=== PATIENT | female | born 1935 | race Caucasian/White ===

== ENCOUNTER 2017-08-14 12:38 | Observation (INO) | payer MEDICARE, OTHER ==
[~2017-08-14] VITALS: Ht 162.6 cm; Wt 77.1 kg
[2017-08-14 14:01] LABS: HEMATOCRIT. 39.2 % (36.0-48.0); MEAN CORPUSCULAR HEMOGLOBIN 30.6 pg (28.0-32.0); MEAN CORPUSCULAR VOLUME 92.4 fL (81.0-99.0); MEAN PLATELET VOLUME 9.2 fl (7.4-10.4); PLATELET 224 x1000/uL (130-400); RED BLOOD CELL COUNT 4.24 mill/uL (4.2-5.4)
[2017-08-14 14:02] LABS: CHLORIDE 104 mEq/L (98-107)
[2017-08-14 14:03] LABS: INR 1.1
[2017-08-14 14:20] LABS: PLATELET ESTIMATE NORMAL
[2017-08-14 14:39] LABS: CLARITY URINE CLEAR (CLEAR); COLOR URINE YELLOW (YELLOW); KETONES URINE 3+ (NEGATIVE); LEUKOCYTE ESTERASE URINE TRACE (NEGATIVE); NITRITE URINE NEGATIVE (NEGATIVE); OCCULT BLOOD URINE 1+ (NEGATIVE); PH URINE 6.5 (4.5-8.0); PROTEIN URINE TRACE (NEGATIVE); SPECIFIC GRAVITY URINE 1.022 (1.005-1.030)
[2017-08-14 15:15] LABS: *COCAINE SCREEN URINE NEGATIVE (NEGATIVE); METHADONE URINE SCREEN NEGATIVE (NEGATIVE); OPIATES URINE SCREEN NEGATIVE (NEGATIVE)
[2017-08-14 15:16] LABS: *AMPHETAMINES SCREEN URINE NEGATIVE (NEGATIVE); *BARBITURATES SCREEN URINE NEGATIVE (NEGATIVE); *BENZODIAZEPINES SCREEN URINE NEGATIVE (NEGATIVE); CANNABINOID URINE SCREEN NEGATIVE (NEGATIVE); PHENCYCLIDINE URINE SCREEN NEGATIVE (NEGATIVE)
[2017-08-14] MEDS ORDERED: POTASSIUM CHLORIDE 20MEQ TABLET SR PO ONE (19:00)
[2017-08-14] MEDS ORDERED: CEFTRIAXONE 1 G PREMIX 50 ML IV ONE (21:15)
[2017-08-14 22:35] VITALS: BP 129/56
[2017-08-14 22:43] VITALS: BP 129/56
[2017-08-15] VITALS: BP 129/56
[2017-08-15] MEDS ORDERED: DOCUSATE SODIUM 100MG CAPSULE PO PRN
[2017-08-15] MEDS ORDERED: ONDANSETRON HCL 4MG/2ML VIAL IV PRN
[2017-08-15 04:00] VITALS: BP 126/45
[2017-08-15 07:17] LABS: CREATINE KINASE 153 IU/L (26-192)
[2017-08-15 07:18] LABS: CREATINE KINASE MB FRACTION 3.2 ng/mL (0.5-3.6)
[2017-08-15 08:00] VITALS: BP 119/41
[2017-08-15] MEDS: ASPIRIN 81MG EC TABLET PO SCH (09:00)
[2017-08-15 09:17] LABS: BASOPHILS % 0.4 % (0.0-2.0); EOSINOPHILS % 1.8 % (0.0-5.0); HEMATOCRIT. 32.9 % (36.0-48.0); HEMOGLOBIN. 11.2 g/dL (12.0-16.0); LYMPHOCYTES % 8.8 % (20.0-50.0); MEAN CORPUSCULAR HEMOGLOBIN 31.5 pg (28.0-32.0); MEAN CORPUSCULAR VOLUME 92.5 fL (81.0-99.0); MEAN PLATELET VOLUME 9.4 fl (7.4-10.4); MONOCYTES % 11.9 % (2.0-8.0); NEUTROPHILS % 77.1 % (40.0-76.0); PLATELET 187 x1000/uL (130-400); RED BLOOD CELL COUNT 3.56 mill/uL (4.2-5.4); RED CELL DISTRIBUTION WIDTH 14.4 % (11.6-14.6)
[2017-08-15 09:18] LABS: CHLORIDE 107 mEq/L (98-107)
[2017-08-15] MEDS: ACETAMINOPHEN 325MG TABLET PO PRN ×2 (10:54→20:43)
[2017-08-15 12:00] VITALS: BP 113/37
[2017-08-15 15:46] LABS: CREATINE KINASE MB FRACTION 1.6 ng/mL (0.5-3.6)
[2017-08-15 16:00] VITALS: BP 104/68
[2017-08-15 20:00] VITALS: BP 123/48
[2017-08-15] MEDS: CEFTRIAXONE 1 G PREMIX 50 ML IV SCH (23:58)
[2017-08-16] VITALS: BP 134/57
[2017-08-16 04:00] VITALS: BP 138/54
[2017-08-16 06:56] LABS: BASOPHILS % 0.6 % (0.0-2.0); EOSINOPHILS % 5.2 % (0.0-5.0); HEMATOCRIT. 34.3 % (36.0-48.0); HEMOGLOBIN. 11.7 g/dL (12.0-16.0); LYMPHOCYTES % 18.3 % (20.0-50.0); MEAN CORPUSCULAR HEMOGLOBIN 31.8 pg (28.0-32.0); MEAN CORPUSCULAR VOLUME 93.3 fL (81.0-99.0); MEAN PLATELET VOLUME 8.8 fl (7.4-10.4); MONOCYTES % 14.6 % (2.0-8.0); NEUTROPHILS % 61.3 % (40.0-76.0); PLATELET 173 x1000/uL (130-400); RED BLOOD CELL COUNT 3.68 mill/uL (4.2-5.4); RED CELL DISTRIBUTION WIDTH 14.6 % (11.6-14.6)
[2017-08-16 07:03] LABS: CHLORIDE 107 mEq/L (98-107)
[2017-08-16 07:16] LABS: LDL CHOLESTEROL 59 mg/dL (5-100)
[2017-08-16 07:17] LABS: T4 FREE 1.04 ng/dL (0.76-1.46)
[2017-08-16 07:19] LABS: HDL CHOLESTEROL 54 mg/dL (40-59)
[2017-08-16 08:00] VITALS: BP 126/48
[2017-08-16] MEDS: ASPIRIN 81MG EC TABLET PO SCH (09:55)
[2017-08-16] MEDS: SILVER SULFADIAZINE 1% CREAM 50GM TOP SCH (11:23)
[2017-08-16 12:00] VITALS: BP 142/55
[2017-08-16] MEDS ORDERED: POTASSIUM CHLORIDE 20MEQ TABLET SR PO NR (12:45)
[2017-08-16 16:20] VITALS: BP 155/95
[2017-08-16] MEDS: ACETAMINOPHEN 325MG TABLET PO PRN (19:02)
[2017-08-16 20:00] VITALS: BP 134/87
[2017-08-16] MEDS: CEFTRIAXONE 1 G PREMIX 50 ML IV SCH (21:22)
[2017-08-17] VITALS: BP 132/55
[2017-08-17 04:00] VITALS: BP 137/51
[2017-08-17 06:57] LABS: HEMATOCRIT 32.3 % (36.0-48.0); HEMOGLOBIN 11.1 g/dL (12.0-16.0); MEAN CORPUSCULAR HEMOGLOBIN 31.9 pg (28.0-32.0); MEAN CORPUSCULAR VOLUME 92.7 fL (81.0-99.0); PLATELET 188 x1000/uL (130-400); RED BLOOD CELL COUNT 3.49 mill/uL (4.2-5.4); RED CELL DISTRIBUTION WIDTH 14.8 % (11.6-14.6)
[2017-08-17 07:10] LABS: CHLORIDE 108 mEq/L (98-107)
[2017-08-17 08:00] VITALS: BP 151/56
[2017-08-17] MEDS: SILVER SULFADIAZINE 1% CREAM 50GM TOP SCH (11:09)
[2017-08-17] MEDS: ASPIRIN 81MG EC TABLET PO SCH (11:09)
[2017-08-17 12:00] VITALS: BP 127/52
[2017-08-17 15:40] LABS: VITAMIN B12 SERUM 814 pg/mL (211-911)
[2017-08-17 16:00] VITALS: BP 162/56
[2017-08-17 16:38] LABS: CLARITY URINE CLEAR (CLEAR); COLOR URINE YELLOW (YELLOW); KETONES URINE NEGATIVE (NEGATIVE); LEUKOCYTE ESTERASE URINE TRACE (NEGATIVE); NITRITE URINE NEGATIVE (NEGATIVE); OCCULT BLOOD URINE NEGATIVE (NEGATIVE); PH URINE 7.5 (4.5-8.0); PROTEIN URINE NEGATIVE (NEGATIVE); SPECIFIC GRAVITY URINE 1.018 (1.005-1.030); UROBILINOGEN URINE 0.2 E.U./dL (0.2-1.0)
[2017-08-17] MEDS: THIAMINE HCL 100MG TABLET PO SCH (17:02)
[2017-08-17] MEDS: ZINC SULFATE 220 MG ( 50 ) CAPSULE PO SCH (17:02)
[2017-08-17] MEDS: LEVOTHYROXINE SODIUM 25MCG TABLET PO SCH (17:03)
[2017-08-17] MEDS ORDERED: HYDRALAZINE 20MG/ML VIAL IV PRN (18:30)
[2017-08-17] MEDS ORDERED: IPRATROPIUM/ALBUTEROL 0.5-3(2.5)MG/3ML NEB HHN PRN (18:30)
[2017-08-17] MEDS ORDERED: HYDROCODONE/ACETAMINOPHEN 5/325MG TABLET PO PRN (18:30)
[2017-08-17] MEDS ORDERED: CLONIDINE 0.1MG TABLET PO NR (19:00)
[2017-08-17 20:00] VITALS: BP 123/42
[2017-08-17] MEDS ORDERED: CLONIDINE 0.1MG TABLET PO PRN (22:00)
[2017-08-17] MEDS: CEFTRIAXONE 1 G PREMIX 50 ML IV SCH (22:19)
[2017-08-18] VITALS: BP 137/52
[2017-08-18 04:00] VITALS: BP 133/50
[2017-08-18 04:14] LABS: BARBITURATE SCREEN Negative ug/mL (Cutoff:0.1); BENZODIAZEPINE SCREEN Negative ng/mL (Cutoff:20); OPIATES SCREEN Negative ng/mL (Cutoff:5); PHENCYCLIDINE SCREEN Negative ng/mL (Cutoff:8)
[2017-08-18] MEDS: LEVOTHYROXINE SODIUM 25MCG TABLET PO SCH (06:30)
[2017-08-18 07:21] LABS: HEMATOCRIT 35.2 % (36.0-48.0); HEMOGLOBIN 11.8 g/dL (12.0-16.0); MEAN CORPUSCULAR VOLUME 92.7 fL (81.0-99.0); PLATELET 209 x1000/uL (130-400); RED BLOOD CELL COUNT 3.79 mill/uL (4.2-5.4); RED CELL DISTRIBUTION WIDTH 14.5 % (11.6-14.6)
[2017-08-18 07:39] LABS: CHLORIDE 107 mEq/L (98-107)
[2017-08-18 08:00] VITALS: BP 132/57
[2017-08-18] MEDS: ZINC SULFATE 220 MG ( 50 ) CAPSULE PO SCH (08:54)
[2017-08-18] MEDS: THIAMINE HCL 100MG TABLET PO SCH (08:54)
[2017-08-18] MEDS: ASPIRIN 81MG EC TABLET PO SCH (08:54)
[2017-08-18] MEDS: SILVER SULFADIAZINE 1% CREAM 50GM TOP SCH (08:55)
[2017-08-18 12:00] VITALS: BP 145/52
[2017-08-18] MEDS ORDERED: POLYETHYLENE GLYCOL 3350 (17GM) 1 DOSE PACK PO SCH (14:45)
[2017-08-18 16:00] VITALS: BP 141/51
[2017-08-18] MEDS ORDERED: FLUCONAZOLE 150MG TABLET PO SCH (17:00)
[2017-08-18 17:23] VITALS: BP 141/51
[2017-08-18] MEDS ORDERED: FLUCONAZOLE 100MG TABLET PO NR (17:45)
[2017-08-19] MEDS ORDERED: POLYETHYLENE GLYCOL 3350 (17GM) 1 DOSE PACK PO SCH (09:00)
== END 2017-08-18 18:27 ==
LOC: ER 13:13 → 5WST 20:47 → ENRESERV 21:10
PROVIDERS: ADMIT Internal Medicine; ATTEND Internal Medicine
DX: R62.7 Adult failure to thrive (principal); D64.9 Anemia, unspecified; E03.9 Hypothyroidism, unspecified; E11.65 Type 2 diabetes mellitus with hyperglycemia; E11.21 Type 2 diabetes mellitus with diabetic nephropathy; I50.43 Acute on chronic combined systolic (congestive) and diastolic (congestive) heart failure; E46 Unspecified protein-calorie malnutrition; E86.0 Dehydration; E87.6 Hypokalemia; K59.00 Constipation, unspecified; M51.37 Other intervertebral disc degeneration, lumbosacral region; W18.30XA Fall on same level, unspecified, initial encounter; Y92.009 Unspecified place in unspecified non-institutional (private) residence as the place of occurrence of the external cause; Y93.9 Activity, unspecified; Y99.8 Other external cause status
CPT/HCPCS: 36415; 70450; 71045; 71111; 72170; 80048; 80053; 80061; 80305; 80307; 81003; 82550; 82553; 82607; 82962; 83036; 83605; 83880; 84439; 84443; 84484; 85025; 85027; 85610; 87040; 87086; 93005; 95816; 96365; 96375; 96376; 97110; 97162; 97530; 99285; A6261; G0378; J0696; J7050